=== PATIENT | female | born 1975 | race Caucasian/White ===

== ENCOUNTER 2020-03-05 11:07 | Emergency (ER) | payer OTHER ==
--- NOTE | 2020-03-05 11:31 | Event Note ---
ED Screening Note ED Screening Note: states that she lost unintentional weight approximately 25 lbs in 6 months occasional nausea occasional vomiting LUQ pain no diarrhea no blood in the stool no fever no urinary sx pmhx none no allergies to meds LNMP: february 11, 2020 This initial assessment/diagnostic orders/clinical plan/treatment(s) is/are subject to change based on patients health status, clinical progression and re- assessment by fellow clinical providers in the ED. Further treatment and workup at subsequent clinical providers discretion. Patient/guardian urged not to elope from the ED as their condition may be serious if not clinically assessed and managed. Initial orders include: labs, UA
[2020-03-05 12:15] LABS: Eosinophils % (Auto) 0.7 % (0.0-4.3); Hematocrit 33.4 % (30.3-42.9); Hemoglobin 11.6 gm/dl (10.1-14.3); Lymphocytes # (Auto) 0.2 K/mm3 (1.2-5.4); Lymphocytes % (Auto) 3.8 % (13.4-35.0); Mean Corpuscular HGB Conc 35 % (30-34); Mean Corpuscular Volume 82 fl (79-97); Monocytes # (Auto) 0.5 K/mm3 (0.0-0.8); Monocytes % (Auto) 12.4 % (0.0-7.3); Platelet Count 160 K/mm3 (140-440); Red Blood Count 4.06 M/mm3 (3.65-5.03); Red Cell Distribution Width 15.1 % (13.2-15.2)
--- NOTE | 2020-03-05 12:36 | Emergency Department Report ---
ED Abdominal Pain HPI - General Chief Complaint: Abdominal Pain Stated Complaint: THROAT AND STOMACH PAIN Time Seen by Provider: 03/05/20 11:28 Source: patient Mode of arrival: Ambulatory Limitations: No Limitations - History of Present Illness Initial Comments: 44-year-old -[place] female presents to the emergency room complaining of left upper quadrant intermittent sharp pains that will last about 30 seconds x 6 months. Patient also states that food gets stuck in her throat this is been going on for about 6 months as well. Patient states that she has had about a 25 pound weight loss in the last 6 months. Patient reports she does not smoke cigarettes her last menstrual period was 02/16/2020 she is 4 para 4. Patient reports she has no past medical history currently takes no medications on a daily basis and has no known drug allergies. Patient states that she is feels like she is spitting more like when she was . MD Complaint: abdominal pain Onset/Timin -: month(s) Location: LUQ Radiation: none Migration to: no migration Severity scale (0 -10): 7 Quality: sharp Consistency: intermittent Improves With: nothing Worsens With: nothing Associated Symptoms: nausea, constipation (Constipation). denies: vomiting - Related Data Allergies Allergy/AdvReac Type Severity Reaction Status Date / Time No Known Allergies Allergy Unverified 03/05/20 11:10 ED Review of Systems ROS: Stated complaint: THROAT AND STOMACH PAIN Other details as noted in HPI Comment: All other systems reviewed and negative ED Past Medical Hx - Past Medical History Previous Medical History?: No - Surgical History Past Surgical History?: No - Social History Smoking Status: Never Smoker Substance Use Type: None ED Physical Exam - General Limitations: No Limitations General appearance: alert, in no apparent distress - Head Head exam: Present: atraumatic, normocephalic - Eye Eye exam: Present: normal appearance - ENT ENT exam: Present: mucous membranes moist - Neck Neck exam: Present: normal inspection - Respiratory Respiratory exam: Present: normal lung sounds bilaterally. Absent: respiratory distress - Cardiovascular Cardiovascular Exam: Present: regular rate, normal rhythm. Absent: systolic murmur, diastolic murmur, rubs, gallop - GI/Abdominal GI/Abdominal exam: Present: soft, tenderness (Left upper quadrant with deep palpation), normal bowel sounds - Extremities Exam Extremities exam: Present: normal inspection - Back Exam Back exam: Present: normal inspection - Neurological Exam Neurological exam: Present: alert, oriented X3 - Psychiatric Psychiatric exam: Present: normal affect, normal mood - Skin Skin exam: Present: warm, dry, intact, normal color. Absent: rash ED Course Vital Signs 03/05/20 11:14 Temperature 98.8 F Pulse Rate 96 H Respiratory 18 Rate Blood Pressure 134/71 O2 Sat by Pulse 100 Oximetry ED Medical Decision Making - Lab Data Result diagrams: 03/05/20 12:05 03/05/20 12:05 Laboratory Tests 03/05/20 03/05/20 03/05/20 12:05 12:05 Unknown WBC 4.1 L RBC 4.06 Hgb 11.6 Hct 33.4 MCV 82 MCH 29 MCHC 35 H RDW 15.1 Plt Count 160 Lymph % (Auto) 3.8 L Greer % (Auto) 12.4 H Eos % (Auto) 0.7 Baso % (Auto) 0.0 Lymph # 0.2 L Greer # 0.5 Eos # 0.0 Baso # 0.0 Seg Neutrophils % 83.1 H Seg Neutrophils # 3.4 Sodium 139 Potassium 3.6 Chloride 102.9 Carbon Dioxide 24 Anion Gap 16 BUN 9 Creatinine 0.6 L Estimated GFR > 60 BUN/Creatinine Ratio 15 Glucose 89 Calcium 8.8 Total Bilirubin 0.40 AST 25 ALT 13 Alkaline Phosphatase 46 Total Protein 7.1 Albumin 4.4 Albumin/Globulin Ratio 1.6 Lipase 26 Urine Color Yellow Urine Turbidity Clear Urine pH 5.0 Ur Specific [place] 1.000 L Urine Protein <15 mg/dl Urine Glucose (UA) Neg Urine Ketones Neg Urine Blood Neg Urine Nitrite Neg Urine Bilirubin Neg Urine Urobilinogen < 2.0 Ur Leukocyte Esterase Neg Urine WBC (Auto) 2.0 Urine RBC (Auto) 1.0 U Epithel Cells (Auto) 2.0 Urine Mucus 2+ Urine HCG, Qual Negative - Medical Decision Making 44-year-old -[place] female presents to the emergency room complaining of left upper quadrant intermittent sharp pains that will last about 30 seconds x 6 months. Patient also states that food gets stuck in her throat this is been going on for about 6 months as well. Patient states that she has had about a 25 pound weight loss in the last 6 months. Patient reports she does not smoke cigarettes her last menstrual period was 02/16/2020 she is 4 para 4. Patient reports she has no past medical history currently takes no medications on a daily basis and has no known drug allergies. Patient states that she is feels like she is spitting more like when she was . Basic labs have been ordered. All labs are negative. Will refer to Dr. Correa Critical care attestation.: If time is entered above; I have spent that time in minutes in the direct care of this critically ill patient, excluding procedure time. ED Disposition Clinical Impression: Chronic abdominal pain Disposition: DC- TO HOME OR SELFCARE Is pt being admited?: No Does the pt Need Aspirin: No Condition: Stable Instructions: Abdominal Pain (ED) Additional Instructions: Labs are all negative. I recommend for you to follow-up with a primary care provider and a commissioner of conciliation. Referrals: RAY MOSES MD [Staff Physician] - 3-5 Days FELIX ROY MD [Staff Physician] - 3-5 Days PRIMARY MD ANA MARÍA [Primary Care Provider] - 3-5 Days [facility] [Provider Group] - 3-5 Days Forms: Work/School Release Form(ED)
[2020-03-05 12:41] LABS: Alanine Aminotransferase 13 units/L (7-56); Albumin 4.4 g/dL (3.9-5); BUN/Creatinine Ratio 15; Blood Urea Nitrogen 9 mg/dL (7-17); Calcium 8.8 mg/dL (8.4-10.2); Hemolysis Index 5
[2020-03-05 14:06] LABS: Bilirubin,Urine NEG (Negative); Blood,Urine NEG (Negative); Mucus,Urine 2+ /HPF; Protein,Urine <15 mg/dL mg/dL (Negative); Urobilinogen,Urine < 2.0 mg/dL (<2.0)
[2020-03-05 14:10] LABS: Color,Urine Yellow (Yellow); HCG Qualitative,Urine Negative (Negative)
[2020-03-05 14:30] VITALS: BP 102/57
== END 2020-03-05 14:30 | disposition home or self-care (01) ==
LOC: ED 11:07
DX: R10.12 Left upper quadrant pain (principal); R11.0 Nausea; K59.00 Constipation, unspecified; G89.29 Other chronic pain
CPT/HCPCS: 36415; 80053; 81001; 81025; 83690; 85025